=== PATIENT | male | born 1945 | race Caucasian/White ===

== ENCOUNTER → 2020-08-31 08:31 | Outpatient (CLI) | payer MEDICARE, OTHER, SELFPAY ==
[2020-08-31 14:03] LABS: COVID19 -Nasal RAPID Negative (Negative)
== END ==
PROVIDERS: Family Provider Family Medicine; PCP Family Medicine; Visit Provider Physician Assistant
DX: Z01.812 Encounter for preprocedural laboratory examination (principal); Z20.822 Contact with and (suspected) exposure to COVID-19
CPT/HCPCS: 87635; C9803

== ENCOUNTER 2020-09-01 09:29 | Day surgery (SDC) | payer MEDICARE, OTHER, SELFPAY ==
[2020-09-01 10:25] VITALS: BP 130/68; PULSE 49; RESP 18; TEMP 36.1; O2SAT 96; BMI 31.6
[2020-09-01] MEDS: PROPARACAINE 0.5% OPHTH SOL 2 DROPS EYE-OP (10:36)
[2020-09-01] MEDS: CATARACT EYE COMPOUND (10 DROPS/SYRINGE) 3 DROPS EYE-OP (10:36)
--- NOTE | 2020-09-01 11:08 | PM.PREOP ---
Pre-operative Note Interval Note History & Physical reviewed/Exam performed by Physician: Yes Changes to H&P: No
--- NOTE | 2020-09-01 11:08 | PM.OP.1 ---
Operative Date/Time/Diagnoses Pre-op diagnosis: Nuclear cataract right eye Procedure & Clinicians Procedure: Cataract Surgery Same procedure as scheduled: Yes Surgeon: Stanley Short Anesthesia Type: MAC +/- and Sedation Operative Notes Procedure in detail: Patient brought to the operating suite. Tetracaine drops placed in the right eye. Patient was prepped and draped in sterile manner. Wire lid speculum was placed in the eye. Betadine drops were placed on the eye. This was irrigated. Lidocaine jelly was placed on the eye. A paracentesis port was created with a side-port blade. 0.1 mL 1% preservative free lidocaine was injected into the anterior chamber. The anterior chamber was deepened with viscoelastic. 2.6 mm keratome was used to create a temporal clear corneal incision. Cystotome and Utrata forceps were used to create continuous tear capsulorrhexis. Balanced salt solution was used to hydro dissect the nucleus. The phacoemulsification handpiece was inserted and the nucleus was removed using the stop and chop technique. The irrigation aspiration handpiece was inserted and the remaining cortex was removed. Anterior chamber was deepened with viscoelastic. An Fernandez DIB00 intraocular lens with a power of 22.5 was injected into the capsular bag. Irrigation aspiration handpiece was inserted and the remaining viscoelastic was removed. Incision was hydrated with balanced salt solution and found to be leak free with pressure with Weck-Jacki sponges. 0.1 mL Vigamox injected anterior chamber. 0.3 mL Kenalog 10 mg was injected subconjunctivally. Lid speculum was removed. The patient left the operating room in excellent condition. Complications: none Post-operative Condition: stable Disposition: same day surgery
[2020-09-01] MEDS: LIDOCAINE 2% (GLYDO) 6 ML GEL TOP (11:44)
[2020-09-01] MEDS: CHONDROIDTIN/SOD HYALURONATE 1.05 ML SYRINGE INTRAOCULA (11:44)
--- NOTE | 2020-09-01 11:44 | SUR.OPER ---
Supine on eye stretcher, head on extension cradle secured with tape. Arms tucked at sides with blanket. Pillow under knees.
[2020-09-01] MEDS: TETRACAINE 0.5% OPHTH DROPS 4 ML 2 DROPS EYE-OP (11:47)
[2020-09-01] MEDS: TRIAMCINOLONE 50 MG/5 ML VIAL INJ (11:47)
[2020-09-01] MEDS: PHENYLEPHRINE/LIDOCAINE VIAL (OR) 0.2 ML EYE-OP (11:47)
[2020-09-01] MEDS: MOXIFLOXACIN INJ 4 MG/0.8 ML VIAL 0.5 MG EYE-OP (11:47)
[2020-09-01] MEDS: BALANCED SALT IRRIG SOLN NO.2 500 ML, EPINEPHrine 1 MG IRR (11:48)
[2020-09-01 12:06] VITALS: BP 132/68; PULSE 58; RESP 14; TEMP 36.1; O2SAT 95
== END 2020-09-01 12:20 | disposition home or self-care (01) ==
PROVIDERS: Family Provider Family Medicine; PCP Internal Medicine; Referring Provider Ophthalmology; Visit Provider Ophthalmology
PROC: (CPT 66984; principal; 2020-09-01 11:15)
DX: H25.11 Age-related nuclear cataract, right eye (principal); I49.9 Cardiac arrhythmia, unspecified; E78.00 Pure hypercholesterolemia, unspecified; I10 Essential (primary) hypertension
CPT/HCPCS: 66984; J0171; J2250; J3010; J3301

== ENCOUNTER → 2020-09-14 08:33 | Outpatient (CLI) | payer MEDICARE, OTHER, SELFPAY ==
[2020-09-14 12:10] LABS: COVID19 -Nasal RAPID Negative (Negative)
== END ==
PROVIDERS: Family Provider Family Medicine; PCP Internal Medicine; Referring Provider Physician Assistant; Visit Provider Physician Assistant
DX: Z01.812 Encounter for preprocedural laboratory examination (principal); Z20.822 Contact with and (suspected) exposure to COVID-19
CPT/HCPCS: 87635; C9803

== ENCOUNTER 2020-09-15 10:32 | Day surgery (SDC) | payer MEDICARE, OTHER, SELFPAY ==
[2020-09-15 10:52] VITALS: BP 134/78; PULSE 55; RESP 16; TEMP 36.6; O2SAT 99; BMI 31.6
[2020-09-15] MEDS: PROPARACAINE 0.5% OPHTH SOL 2 DROPS EYE-OP (11:03)
[2020-09-15] MEDS: CATARACT EYE COMPOUND (10 DROPS/SYRINGE) 3 DROPS EYE-OP (11:03)
--- NOTE | 2020-09-15 11:35 | PM.PREOP ---
Pre-operative Note Interval Note History & Physical reviewed/Exam performed by Physician: Yes Changes to H&P: No
--- NOTE | 2020-09-15 11:35 | PM.OP.1 ---
Operative Date/Time/Diagnoses Pre-op diagnosis: Nuclear Cataract Left eye Post-op diagnosis: same Procedure & Clinicians Same procedure as scheduled: Yes Surgeon: Stanley Short Anesthesia Type: MAC +/- and Sedation Operative Notes Procedure in detail: Patient brought to the operating suite. Tetracaine drops placed in the left eye. Patient was prepped and draped in sterile manner. Wire lid speculum was placed in the eye. Betadine drops were placed on the eye. This was irrigated. Lidocaine jelly was placed on the eye. A paracentesis port was created with a side-port blade. 0.1 mL 1% preservative free lidocaine was injected into the anterior chamber. The anterior chamber was deepened with viscoelastic. 2.6 mm keratome was used to create a temporal clear corneal incision. The pupil was floppy and miotic. A 6.25 mm Malyugin ring was used to enlarge the pupil. Cystotome and Utrata forceps were used to create continuous tear capsulorrhexis. Balanced salt solution was used to hydro dissect the nucleus. The phacoemulsification handpiece was inserted and the nucleus was removed using the stop and chop technique. The irrigation aspiration handpiece was inserted and the remaining cortex was removed. Anterior chamber was deepened with viscoelastic. An Fernandez DIB00 intraocular lens with a power of 22.0 was injected into the capsular bag. The Malyugin ring was removed. Irrigation aspiration handpiece was inserted and the remaining viscoelastic was removed. Incision was hydrated with balanced salt solution and found to be leak free with pressure with Weck-Jacki sponges. 0.1 mL Vigamox injected anterior chamber. 0.3 mL Kenalog 10 mg was injected subconjunctivally. Lid speculum was removed. The patient left the operating room in excellent condition. Complications: none Post-operative Condition: stable Disposition: same day surgery
[2020-09-15] MEDS: LIDOCAINE 2% (GLYDO) 6 ML GEL TOP (11:50)
[2020-09-15] MEDS: CHONDROIDTIN/SOD HYALURONATE 1.05 ML SYRINGE INTRAOCULA (11:50)
[2020-09-15] MEDS: TETRACAINE 0.5% OPHTH DROPS 4 ML 2 DROPS EYE-OP (11:51)
[2020-09-15] MEDS: TRIAMCINOLONE 50 MG/5 ML VIAL INJ (11:51)
[2020-09-15] MEDS: MOXIFLOXACIN INJ 4 MG/0.8 ML VIAL 0.5 MG EYE-OP (11:51)
[2020-09-15] MEDS: PHENYLEPHRINE/LIDOCAINE VIAL (OR) 0.2 ML EYE-OP (11:51)
[2020-09-15] MEDS: BALANCED SALT IRRIG SOLN NO.2 500 ML, EPINEPHrine 1 MG IRR (11:52)
[2020-09-15 12:14] VITALS: BP 114/70; PULSE 69; RESP 16; TEMP 36.4; O2SAT 96
[2020-09-15 12:40] VITALS: BP 121/74; PULSE 64; RESP 16; TEMP 36.6; O2SAT 98
--- NOTE | 2020-09-15 16:19 | SUR.PHASEII ---
Late entry: Discharge delayed due to pt's ride not available to pick pt up when ready.
== END 2020-09-15 12:50 | disposition home or self-care (01) ==
PROVIDERS: Family Provider Family Medicine; PCP Internal Medicine; Referring Provider Ophthalmology; Visit Provider Ophthalmology
PROC: (CPT 66984; principal; 2020-09-15 12:15)
DX: H25.12 Age-related nuclear cataract, left eye (principal); E78.00 Pure hypercholesterolemia, unspecified; I10 Essential (primary) hypertension; G47.33 Obstructive sleep apnea (adult) (pediatric)
CPT/HCPCS: 66984; J0171; J2250; J3010; J3301

== ENCOUNTER → 2021-06-21 10:56 | Outpatient (CLI) | payer MEDICARE, OTHER, SELFPAY ==
--- NOTE | 2021-06-21 | DI.MRI.S_ITS ---
PROCEDURE: MR LUMBAR SPINE WO CON INDICATIONS: Other spondylosis, lumbar region TECHNIQUE: Noncontrast sagittal T1 spin echo and T2 fast echo, sagittal STIR, and T2 fast spin echo through the lumbar spine. In cases with scoliosis, additional coronal T2 fast spin echo may be performed. COMPARISON: None. FINDINGS: Image quality: Excellent. Alignment and Curvature: There is normal bony alignment. Bone Marrow: Modic type 2 reactive endplate changes noted adjacent to the L1-L2, L2-L3, L3-L4, L4-L5 and L5-S1 discs. Placement of normal fatty marrow is noted throughout the visualized spine.. No acute vertebral body compression fractures. Spinal Cord: Conus medullaris terminates at the L1 level. Visualized cord demonstrates normal signal and size. Paraspinous Soft Tissues: No paravertebral masses. T12-L1: Loss of disc signal and height. Mild, diffuse disc bulge. No central stenosis. No neural foraminal narrowing. No neural compression. L1-L2: Loss of disc signal and height. Moderate, diffuse disc bulge. Right central disc protrusion. Mild bilateral facet hypertrophy. Moderate narrowing of the central canal. Moderate bilateral neural foraminal narrowing. No neural compression. L2-L3: Loss of disc signal and height. Moderate, diffuse disc bulge. Jjzh-jn-jkrnleur bilateral facet hypertrophy. Mild ligamentum flavum hypertrophy. Moderate narrowing of the central canal. Mild to moderate bilateral neural foraminal narrowing. No neural compression L3-L4: Loss of disc signal and height. Moderate, diffuse disc bulge. Ttik-yz-uglhcymh bilateral facet hypertrophy. Moderate ligamentum flavum hypertrophy. Severe narrowing of the central canal with slight compression of the traversing nerve roots of the cauda equina. Moderate bilateral neural foraminal narrowing. L4-L5: Loss of disc signal and height. Moderate, diffuse disc bulge. Oelj-ih-wambrvyi bilateral facet hypertrophy. Moderate ligamentum flavum hypertrophy. Severe narrowing of the central canal with slight compression of the nerve roots of the cauda equina. Moderate to severe right and moderate left neural foraminal narrowing. L5-S1: Loss of disc signal and height. Moderate, diffuse disc bulge. Large left central disc protrusion. Disc protrusion abuts and compresses the traversing left S1 nerve root. Mild bilateral facet hypertrophy. Moderate narrowing of the central canal. Severe right and moderate to severe left neural foraminal narrowing with compression of the exiting right L5 nerve root. IMPRESSION: 1. Multilevel degenerative disc disease. 2. Multilevel facet arthropathy. 3. Severe L3-L4 and L4-L5 central canal narrowing with slight compression of the true is AC nerve roots of the cauda equina. 4. Severe right L5-S1 neural foraminal narrowing with compression of the exiting right L5 nerve root. 5. Large L5-S1 left central disc protrusion which abuts and compresses the traversing left S1 nerve root. 6. Replacement of normal fatty marrow throughout the visualized spine and bony pelvis. Finding may represent chronic anemia, however finding is nonspecific and other etiologies including systemic neoplastic process could produce a similar appearance. Please correlate with clinical and laboratory data. Dictated by: Kenya Coy MD, PhD on 06/21/2021 at 15:48 Approved by: Kenya Coy MD, PhD on 06/21/2021 at 15:54
== END ==
PROVIDERS: Family Provider Family Medicine; PCP Internal Medicine; Referring Provider Internal Medicine; Visit Provider Internal Medicine
DX: M51.36 Other intervertebral disc degeneration, lumbar region (principal); M51.37 Other intervertebral disc degeneration, lumbosacral region; M51.27 Other intervertebral disc displacement, lumbosacral region; M47.816 Spondylosis without myelopathy or radiculopathy, lumbar region; M47.817 Spondylosis without myelopathy or radiculopathy, lumbosacral region; M48.061 Spinal stenosis, lumbar region without neurogenic claudication; M48.07 Spinal stenosis, lumbosacral region
CPT/HCPCS: 72148

== ENCOUNTER 2021-11-06 10:13 | Emergency (ER) | payer MEDICARE, OTHER, SELFPAY ==
[2021-11-06 10:28] VITALS: BP 131/64; PULSE 62; RESP 18; TEMP 36.8; O2SAT 99; BMI 30.2
--- NOTE | 2021-11-06 10:29 | ED_ITS ---
HPI - Extremity Problem General Chief complaint: Extremity Problem,Nontraumatic Stated complaint: LEFT LOWER LEG PAIN Time Seen by Provider: 11/06/21 10:26 History of Present Illness HPI Narrative: The patient is a 75-year-old male with history of hypertension presenting today with left leg sores and pain. He says he chronically gets skin sores he has had some for very long time. There are 3 on the lower part of his leg. They have been there for a while he started having some mild discomfort on them 5 days ago. Last night his noticed that the skin surrounding though sores was mildly red. He said the redness has improved. He says these sores or typically number painful the stones are little bit painful. He has no calf pain he has no shortness of breath he has no fever or chills. The sores are still mildly tender there are not significantly big. Related Data Home Medications Medication Instructions Recorded Confirmed aspirin 81 mg PO QDAY ##0 12/15/10 09/15/20 biotin-calcium carbonate 1 tab PO QDAY ##0 12/15/10 09/15/20 fenofibrate nanocrystallized 160 160 mg PO QDAY ##0 12/15/10 09/15/20 mg tablet (Triglide) metoprolol tartrate 25 mg tablet 25 mg PO BID ##0 02/16/11 09/15/20 cholecalciferol (vitamin D3) 25 25 mcg PO BID 09/01/20 09/15/20 mcg (1,000 unit) capsule (Vitamin D3) losartan 100 mg tablet 100 mg PO DAILY 09/01/20 09/15/20 hhuytzcf-amz-wcatw acid 300 1 tab PO DAILY 09/01/20 09/15/20 mcg-lycopene 600 mcg-lutein 300 mcg tablet (Centrum Silver Men) Allergies Allergy/AdvReac Type Severity Reaction Status Date / Time pseudoephedrine Allergy Mild HIVES AND Verified 11/06/21 10:28 RASH Review of Systems Review of Systems Narrative: GENERAL: Denies chills,fever HEENT: Denies throat pain RESPIRATORY: Denies dyspnea, cough, wheezing CARDIOVASCULAR: Denies chest pain, palpitations GASTROINTESTINAL: Denies nausea, vomiting MUSCULOSKELETAL: Denies extremity pain, injury SKIN: See HPI NEUROLOGIC: Denies weakness, dizziness, headache, numbness 8 point review of systems is negative except for those stated above and HPI Patient History Social History household members: spouse Smoking Status: Never smoker alcohol intake: never Smoking Status: Never smoker Substance Use Type: does not use Exam Initial Vital Signs Initial Vital Signs: Vital Signs Temperature 98.2 F 11/06/21 10:28 Pulse Rate 62 11/06/21 10:28 Respiratory Rate 18 11/06/21 10:28 Blood Pressure 131/64 11/06/21 10:28 Pulse Oximetry 99 11/06/21 10:28 Oxygen Delivery Method 11/06/21 10:28 GENERAL: Alert pleasant 75-year-old male CARDIOVASCULAR: peripheral pulses in tact, cap refill <2 sec RESPIRATORY: No respiratory distress, speaks in full sentences without difficulty EXTREMITIES: Normal range of motion, no clubbing or edema. Neurovascularly intact Left lower extremity no swelling distal pedal pulse intact no calf pain calf is soft NEUROLOGICAL: Cranial nerves II through XII grossly intact. Normal gait and speech. SKIN: Skin colored sores on left leg. Very minimal very light barely noticeable erythema. No fluctuation no induration sores measure about 0.25- 0.5cm. No vesicles no pustule, no drainage Course Vital Signs Vital signs: Vital Signs - 8 hr 11/06/21 10:28 Temperature 98.2 F Pulse Rate 62 Respiratory Rate 18 Blood Pressure 131/64 Pulse Oximetry 99 Oxygen Delivery Method Room Air MDM - Extremity (Nontraumatic) MDM Narrative Medical decision making narrative: Patient has absolutely no calf pain. No significant swelling this is unlikely to be a DVT. He also some pain over his chronic source that he always gets. He has no infectious symptoms this unlikely to be Monkey pox. At this time recommend monitoring and topical antibiotic ointment Discharge Plan Departure Patient Disposition: Home Clinical Impression: Leg sore Instructions: DI for Cellulitis -- Adult Activity Restrictions/Additional Instructions: *You have been diagnosed with leg sores *What to do: At this time very unlikely to be blood clot. No need for antibiotic pills. Please use antibiotic ointment twice a day. May also try warm compresses over the area. Monitor very closely. If redness worsens then return to the emergency department *Continue to take medications as directed Neosporin or other triple antibiotic ointment twice a day-->? To be purchased [id number] by the [employer] *Follow up with your primary care provider in 2-3 days or call [phone] *Return to ER if you should have increasing redness fever pain swelling or any new, worsening or concerning symptoms Prescriptions: No Action fenofibrate nanocrystallized [Triglide] 160 MG tablet 160 mg PO QDAY Qty: 0 aspirin 81 mg PO QDAY Qty: 0 biotin-calcium carbonate 1 tab PO QDAY Qty: 0 metoprolol tartrate 25 MG tablet 25 mg PO BID Qty: 0 losartan 100 mg tablet 100 mg PO DAILY Centrum Silver Men 300-600-300 mcg Tablet 1 tab PO DAILY cholecalciferol (vitamin D3) [Vitamin D3] 25 mcg (1,000 unit) Capsule 25 mcg PO BID Referrals: Anatoly Goldman MD [Primary Care Provider] - Visit Report Forms: Patient Portal/API
== END 2021-11-06 10:57 | disposition home or self-care (01) ==
PROVIDERS: Emergency Provider Emergency Medicine; Family Provider Family Medicine; PCP Internal Medicine
DX: L98.9 Disorder of the skin and subcutaneous tissue, unspecified (principal)
CPT/HCPCS: 99281

== ENCOUNTER → 2021-12-14 10:23 | Outpatient (CLI) | payer MEDICARE, OTHER, SELFPAY ==
--- NOTE | 2021-12-14 | DI.NM.S_ITS ---
PROCEDURE: NM BABS PERF SPECT R&S PHARM Rest and pharmacological stress myocardial perfusion SPECT with gated imaging and ejection fraction RADIOPHARMACEUTICAL: 25.2 mCi Tc-99m tetrafosmin IV at rest and 25.7 mCi Tc-99m tetrafosmin IV at peak effect of pharmacological stress. [id number] was performed. INDICATIONS: Other chest pain TECHNIQUE: Radiopharmaceutical was injected at peak stress test, and also at rest. SPECT images were obtained. SPECT myocardial perfusion images were displayed in short axis, horizontal long axis, and vertical long axis views. Gated images were reviewed using [employer] software. COMPARISON: None. CARDIAC STRESS: A pharmacologic stress test was performed under the supervision of an attending staff, using an infusion of lexiscan 0.4mg IV X1. Hemodynamic data: There is normal blood pressure and heart rate response to pharmacologic stress. Symptoms: The patient denied anginal chest pain. Aminophylline: none EKG: No diagnostic changes of ischemia; occasional PACs present. FINDINGS: Raw data: There is good myocardial uptake of radiotracer. No significant motion artifacts. Left ventricle function: Gated images demonstrate normal left ventricular wall thickening. No segmental wall motion abnormalities. No transient ischemic dilation; TID is 1.07 (normal less than 1.3). Left ventricle resting end diastolic volume is 122 mL. Left ventricle stress ejection fraction is 74%; normal range is above 45%. Myocardial perfusion: There is mildly intense fixed inferior wall defect. No prone imaging available making difficult to distinguish between artifact and infarction. No ischemia. Similar defect was seen on nuc stress 11/07/2016 and it resolved with prone imaging at that time, suggesting probably diaphragmatic this time as well. IMPRESSION: Low risk, possibly normal pharmaceutical nuclear stress test. 1) No ischemia on perfusion images. There is mildly intense fixed inferior wall defect. No prone imaging available making difficult to distinguish between artifact and infarction but infarction appears less likely. Similar defect was seen on nuc stress 11/07/2016 and it resolved with prone imaging at that time, suggesting probably diaphragmatic this time as well. 2) Normal left ventricular size, wall motion, and systolic function (EF post stress 74%). 3) No angina during the study. 4) No ST changes with lexiscan. 1) Dictated by: Kanchan Todd MD on 12/15/2021 at 13:32 Approved by: Kanchan Todd MD on 12/15/2021 at 13:37
[2021-12-14 13:53] LABS: COVID19 -Nasal RAPID Negative (Negative)
== END ==
PROVIDERS: Radiology Diagnostic Radiology; Family Provider Family Medicine; PCP Internal Medicine; Referring Provider Internal Medicine; Visit Provider Internal Medicine
DX: R07.89 Other chest pain (principal); Z20.822 Contact with and (suspected) exposure to COVID-19
CPT/HCPCS: 78452; 87635; 93017; A9502; J2785

== ENCOUNTER → 2023-02-02 08:18 | Outpatient (CLI) | payer MEDICARE, OTHER, SELFPAY ==
--- NOTE | 2023-02-02 | DI.RAD.S_ITS ---
PROCEDURE: XR SHOULDER RT MIN 2V INDICATIONS: pain in right shoulder TECHNIQUE: 3 views of the shoulder were acquired. COMPARISON: None. FINDINGS: Bones: No fractures or dislocations. No suspicious bony lesions. Severe glenohumeral joint degeneration and mild acromioclavicular joint degeneration. Visualized ribs appear intact. Soft tissues: Calcific densities over the humeral head, suggesting rotator cuff calcific tendinitis. Possible small intra-articular body in the superior glenohumeral joint. IMPRESSION: 1. Severe osteoarthritis of the glenohumeral joint. 2. Mild osteoarthritis of the acromioclavicular joint. 3. Suspect rotator cuff calcific tendinitis. 4. Possible small intra-articular body in the glenohumeral joint. Dictated by: Franco Almazan M.D. on 02/02/2023 at 12:00 Approved by: Franco Almazan M.D. on 02/02/2023 at 12:02
== END ==
PROVIDERS: Family Provider Family Medicine; PCP Internal Medicine; Referring Provider Internal Medicine; Visit Provider Internal Medicine
DX: M19.011 Primary osteoarthritis, right shoulder (principal); M25.511 Pain in right shoulder
CPT/HCPCS: 73030

== ENCOUNTER → 2023-04-23 12:44 | Outpatient (CLI) | payer MEDICARE, OTHER, SELFPAY ==
--- NOTE | 2023-04-23 12:47 | DI.MRI.S_ITS ---
PROCEDURE: MR SHOULDER RT WO CON INDICATIONS: chronic right shoulder pain TECHNIQUE: Noncontrast oblique coronal T2 fast spin echo with fat saturation, oblique sagittal T1 spin echo and T2 fast spin echo with fat saturation, axial T1 spin echo and T2 fast spin echo with fat saturation through the shoulder. COMPARISON: None. FINDINGS: Image quality: Excellent. Rotator cuff: Moderate grade articular and bursal surface partial thickness tear involving distal supraspinatus at its insertion on the humeral head is seen extending to musculotendinous junction. Low to moderate grade articular surface partial-thickness tear involving distal infraspinatus at its insertion on the humeral head is also seen extending to musculotendinous junction. Moderate grade partial-thickness tear involving superior to mid fibers of distal subscapularis. No full-thickness rotator cuff tendon rupture. Sagittal images demonstrate moderate supraspinatus muscle atrophy and mild infraspinatus muscle atrophy. Bones and bursae: No bone marrow contusions or fractures. Moderate acromioclavicular joint osteoarthritic changes are seen with joint space narrowing and downward osteophyte formation depressing the musculotendinous junction of supraspinatus. Moderate to severe glenohumeral joint osteoarthritic changes are seen with near complete loss of joint space, extensive subchondral sclerosis and prominent inferior marginal osteophyte formation. Large amount of joint effusion and subacromial subdeltoid bursal fluid is seen. Moderate to large subcoracoid bursal fluid is also noted. There are intra-articular loose bodies within dependent portion of subcoracoid bursa and glenohumeral joint measures up to 6 mm in size within the bicipital groove and up to 6 mm in size within subcoracoid bursa. Capsule and soft tissues: There is extensive fraying and T2 signal abnormality throughout posterior and inferior labrum suggestive of extensive labral tear. The long head of the biceps tendon demonstrates normal location and morphology. The rotator interval appears normal, without fibrosis. The coracohumeral ligament is normal in thickness. IMPRESSION: 1. Moderate to severe glenohumeral joint osteoarthritis and moderate acromioclavicular joint osteoarthritis. No fracture or dislocation. Moderate to large joint effusion and subacromial subdeltoid bursal fluid as well as subcoracoid bursal fluid with multiple loose bodies as above. 2. Moderate grade articular and bursal surface partial thickness tear involving distal supraspinatus extending to musculotendinous junction. Low to moderate grade articular surface partial-thickness tear involving distal infraspinatus extending to musculotendinous junction. Moderate grade partial-thickness tear involving superior to mid fibers of distal subscapularis. No full-thickness rotator cuff tendon rupture. Moderate supraspinatus muscle atrophy and mild infraspinatus muscle atrophy. 3. Suggestion of extensive posterior and inferior right shoulder labral tear. Dictated by: Arslan Tom M.D. on 04/24/2023 at 11:09 Approved by: Arslan Tom M.D. on 04/24/2023 at 11:14
== END ==
LOC: MRI 12:46
PROVIDERS: Family Provider Family Medicine; PCP Internal Medicine; Referring Provider Internal Medicine; Visit Provider Internal Medicine
DX: M75.111 Incomplete rotator cuff tear or rupture of right shoulder, not specified as traumatic (principal); M19.011 Primary osteoarthritis, right shoulder; M25.411 Effusion, right shoulder; M24.011 Loose body in right shoulder; M25.511 Pain in right shoulder
CPT/HCPCS: 73221